=== PATIENT | male | born 1975 | race Caucasian/White ===

== ENCOUNTER 2021-08-09 06:01 | Emergency (ER) | payer SELFPAY ==
[~2021-08-09] VITALS: Ht 180 cm; Wt 105.0 kg
[2021-08-09] MEDS ORDERED: LACTATED RINGERS 1,000 ML IV ONE (06:30)
[2021-08-09] MEDS ORDERED: fentaNYL INJ 100 MCG/2 ML AMP IVP ONE (06:30)
[2021-08-09] MEDS ORDERED: ONDANSETRON 4 MG/2 ML (SDV) Z0FRAN IVP ONE (06:30)
[2021-08-09 06:46] LABS: BASOPHILS # (AUTO) 0.1 10^3/uL (0.0-0.1); BASOPHILS % (AUTO) 1 % (0-10); EOSINOPHILS # (AUTO) 0.3 10^3/uL (0.0-0.3); EOSINOPHILS % (AUTO) 4 % (0-10); HEMATOCRIT 46 % (40-54); HEMOGLOBIN 16.3 g/dL (13.3-17.7); LYMPHOCYTES # (AUTO) 2.3 10^3/uL (1.0-4.0); LYMPHOCYTES % (AUTO) 28 % (12-44); MEAN CORPUSCULAR HEMOGLOBIN 30 pg (25-34); MEAN CORPUSCULAR HGB CONC 35 g/dL (32-36); MEAN CORPUSCULAR VOLUME 86 fL (80-99); MEAN PLATELET VOLUME 9.8 fL (9.0-12.2); MONOCYTES # (AUTO) 0.4 10^3/uL (0.0-1.0); MONOCYTES % (AUTO) 5 % (0-12); NEUTROPHILS # (AUTO) 5.3 10^3/uL (1.8-7.8); NEUTROPHILS % (AUTO) 63 % (42-75); PLATELET COUNT 286 10^3/uL (130-400); WHITE BLOOD COUNT 8.4 10^3/uL (4.3-11.0)
[2021-08-09] MEDS ORDERED: CATHETER FLUSH 10 ML SYR IV PRN (07:00)
[2021-08-09] MEDS ORDERED: HOLD METFORMIN - RECEIVED CONTRAST 20 ML VIAL IV SCH (07:00)
[2021-08-09] MEDS ORDERED: IOHEXOL 350 MG/ML 100 ML (OMNIPAQUE 350) VIAL IV ONE (07:00)
[2021-08-09] MEDS ORDERED: NS 100 ML (IVPB) BAG IV ONE (07:00)
--- NOTE | 2021-08-09 07:01 | ED Abdominal Pain ---
General Chief Complaint: Abdominal/GI Problems Stated Complaint: ABDOMINAL PAIN Nursing Triage Note: Pt c/o right sided abd pain with nausea that becomes worse after eating since Friday. Pt denies urinary symptoms. Denies n/d, fever, or blood in stool. Source of Information: Patient Exam Limitations: No Limitations (MOOKIE BURCIAGA MD) History of Present Illness Date Seen by Provider: August 09, 2021 Time Seen by Provider: 06:15 Initial Comments This 45-year-old gentleman presents to the emergency room with complaints of right-sided abdominal pain for about 4 days now. He has had some nausea without vomiting. He denies any constipation. His last bowel movement was yesterday morning, about 24 hours ago. He denies fever or chills. He denies any prior history of abdominal surgeries. He has a feeling of constipation but he denies any recent constipation. In fact, he normally has loose stools daily because of metformin use. Pain started in the periumbilical region and then moved to the right side. He does not report any urinary changes. He is visibly in mild distress during initial evaluation. (MOOKIE BURCIAGA MD) Allergies and Home Medications Allergies Coded Allergies: Sulfa (Sulfonamide Antibiotics) (Verified Allergy, Unknown, 08/09/21) Patient Home Medication List Home Medication List Reviewed: Yes (MOOKIE BURCIAGA MD) Review of Systems Review of Systems Constitutional: no symptoms reported EENTM: No Symptoms Reported Respiratory: No Symptoms Reported Cardiovascular: No Symptoms Reported Gastrointestinal: See HPI Genitourinary: No Symptoms Reported Musculoskeletal: no symptoms reported Skin: no symptoms reported Psychiatric/Neurological: No Symptoms Reported Endocrine: No Symptoms Reported Hematologic/Lymphatic: No Symptoms Reported (MOOKIE BURCIAGA MD) Past Qzagorw-Gxiwxz-Upuzma Hx Patient Social History Tobacco Use?: No Use of E-Cig and/or Vaping dev: No Substance use?: No Alcohol Use?: No Pt feels they are or have been: No (MOOKIE BURCIAGA MD) Immunizations Up To Date Influenza Vaccine Up-to-Date: No; Not Current First/Initial COVID19 Vaccinat: denies (MOOKIE BURCIAGA MD) Past Medical History Surgeries: Yes Orthopedic (Right knee, left elbow, lower back) Respiratory: No Cardiac: No Neurological: No Genitourinary: No Gastrointestinal: No Musculoskeletal: No Endocrine: No HEENT: No Cancer: No Psychosocial: No Integumentary: No (MOOKIE BURCIAGA MD) Physical Exam Vital Signs Vital Signs - First Documented 08/09/21 06:10 Temp 36.7 Pulse 89 Resp 18 B/P (MAP) 140/73 (95) O2 Delivery Room Air (BRIANA RIVAS MD) Vital Signs Capillary Refill : Less Than 3 Seconds (MOOKIE BURCIAGA MD) Height/Weight/BMI Height: '" Weight: lbs. oz. 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, no motor/sensory deficits, alert, normal mood/affect, oriented x 3 Skin: normal color, warm/dry (MOOKIE BURCIAGA MD) Progress/Results/Core Measures Results/Orders Lab Results Laboratory Tests Test 08/09/21 06:19 Range/Units White Blood Count 8.4 4.3-11.0 10^3/uL Red Blood Count 5.37 4.30-5.52 10^6/uL Hemoglobin 16.3 13.3-17.7 g/dL Hematocrit 46 40-54 % Mean Corpuscular Volume 86 80-99 fL Mean Corpuscular Hemoglobin 30 25-34 pg Mean Corpuscular Hemoglobin Concent 35 32-36 g/dL Red Cell Distribution Width 11.9 10.0-14.5 % Platelet Count 286 130-400 10^3/uL Mean Platelet Volume 9.8 9.0-12.2 fL Immature Granulocyte % (Auto) 0 % Neutrophils (%) (Auto) 63 42-75 % Lymphocytes (%) (Auto) 28 12-44 % Monocytes (%) (Auto) 5 0-12 % Eosinophils (%) (Auto) 4 0-10 % Basophils (%) (Auto) 1 0-10 % Neutrophils # (Auto) 5.3 1.8-7.8 10^3/uL Lymphocytes # (Auto) 2.3 1.0-4.0 10^3/uL Monocytes # (Auto) 0.4 0.0-1.0 10^3/uL Eosinophils # (Auto) 0.3 0.0-0.3 10^3/uL Basophils # (Auto) 0.1 0.0-0.1 10^3/uL Immature Granulocyte # (Auto) 0.0 0.0-0.1 10^3/uL Sodium Level 134 L 135-145 MMOL/L Potassium Level 4.5 3.6-5.0 MMOL/L Chloride Level 100 98-107 MMOL/L Carbon Dioxide Level 21 21-32 MMOL/L Anion Gap 13 5-14 MMOL/L Blood Urea Nitrogen 18 7-18 MG/DL Creatinine 0.89 0.60-1.30 MG/DL Estimat Glomerular Filtration Rate 108 BUN/Creatinine Ratio 20 Glucose Level 271 H 70-105 MG/DL Calcium Level 9.3 8.5-10.1 MG/DL Corrected Calcium 9.0 8.5-10.1 MG/DL Total Bilirubin 0.5 0.1-1.0 MG/DL Aspartate Amino Transf (AST/SGOT) 16 5-34 U/L Alanine Aminotransferase (ALT/SGPT) 23 0-55 U/L Alkaline Phosphatase 97 40-136 U/L C-Reactive Protein 0.33 <0.50 MG/DL Total Protein 7.3 6.4-8.2 GM/DL Albumin 4.4 3.2-4.5 GM/DL Lipase 19 8-78 U/L (BRIANA RIVAS MD) My Orders Orders - BRIANA RIVAS MD Us Gallbladder [id number] (08/09/21 07:42) Ketorolac Injection (Toradol Injection) (08/09/21 07:45) (BRIANA RIVAS MD) Medications Given in ED Current Medications Medications Dose Ordered Sig/Sia Route Start Time Stop Time Status Last Admin Dose Admin Fentanyl Citrate 50 mcg ONCE ONCE IVP 08/09/21 06:30 5/12/22 06:31 DC 08/09/21 06:33 50 MCG Iohexol 100 ml ONCE ONCE IV 08/09/21 07:00 08/09/21 07:03 DC 08/09/21 07:13 100 ML Ketorolac Tromethamine 15 mg ONCE ONCE IVP 08/09/21 07:45 08/09/21 07:47 DC 08/09/21 07:57 15 MG Lactated Ringer's 1,000 ml @ 0 mls/hr Q0M ONCE IV 08/09/21 06:30 08/09/21 06:31 DC 08/09/21 06:33 999 MLS/HR Ondansetron HCl 8 mg ONCE ONCE IVP 08/09/21 06:30 08/09/21 06:31 DC 08/09/21 06:33 8 MG Sodium Chloride 10 ml NEEDED PRN IV 08/09/21 07:00 08/09/21 07:13 10 ML Sodium Chloride 100 ml ONCE ONCE IV 08/09/21 07:00 08/09/21 07:03 DC 08/09/21 07:13 80 ML (BRIANA RIVAS MD) Vital Signs/I&O 08/09/21 06:10 Temp 36.7 Pulse 89 Resp 18 B/P (MAP) 140/73 (95) O2 Delivery Room Air (BRIANA RIVAS MD) Blood Pressure Mean: 95 Progress Progress Note : Time: 07:00 Progress Note Patient was treated with Zofran and fentanyl. IV fluids are infusing. CT scan is pending. Patient is exhibiting peritoneal signs that should be evaluated with imaging promptly. (MOOKIE BURCIAGA MD) Progress Note : Progress Note Sign out from Dr Burciaga. 1. ABDOMINAL PAIN vs MUSCLE STRAIN - CT ABD: fatty liver and gallstones - U/S RUQ: gallbladder polyp instead of stones, and fatty liver - Labs unremarkable with normal white count - Received fluids, Fentanyl, and Zofran - Continued pain, will give Toradol - Gave pt surgery clinic number to make appointment -The patient was seen in the ED, and treated appropriately to presentation at a specific point in time. Patient is informed that there is a possibility that disease and illness can evolve and change in acuity rapidly or slowly after patient is discharged from the ER. Precautionary advice given to the patient for immediate return to ER if symptoms worsen or do not resolve, and to seek emergency care sooner rather than later. Pt also advised on the importance of PCP follow up and compliance with management and follow up plan with PCP and/or specialist, as this is part of the management plan. Pt verbally expressed understanding. (BRIANA RIVAS MD) Diagnostic Imaging Diagonstic Imaging: CT, Ultrasound Plain Films/CT/US/NM/MRI: abdomen Comments [facility], [place] NAME: OLIVIA GUERRIER [facility] REC#: [id number] PT STATUS: REG ER : 1975 PHYSICIAN: BRIANA RIVAS MD ADMIT DATE: 08/09/21/ER FS Draft Date of Exam:08/09/21 US GALLBLADDER [id number] PROCEDURE: US Gallbladder. TECHNIQUE: Multiple real-time grayscale images were obtained over the right upper quadrant in various projections. INDICATION: Right upper quadrant pain. COMPARISON: CT from same date. FINDINGS: The liver is mildly enlarged measuring 21 cm in length. The liver demonstrates diffusely increased echogenicity with a coarsened echotexture and poor acoustic transmission. No focal hepatic mass. A nonmobile 0.2 cm echogenic focus is seen within the gallbladder without posterior acoustic shadowing. No evidence of thickening or fluid. The common bile duct is within normal limits measuring 0.5 cm. The pancreas is not well seen secondary to overlying bowel gas. The right kidney is unremarkable without evidence of hydronephrosis. No significant free fluid. Visualized portions of the inferior vena cava are unremarkable. The abdominal aorta is not well seen secondary to overlying bowel gas. Normal direction of flow within the main portal vein. IMPRESSION: 0.2 cm gallbladder polyp versus adherent stone without evidence of acute cholecystitis. Hepatomegaly with associated fatty infiltration of the liver. Dictated on workstation # [id number] Dict: 08/09/21817 Trans: 08/09/21822 [facility] [place] [place] NAME: OLIVIA GUERRIER [facility] REC#: [id number] PT STATUS: REG ER : 1975 PHYSICIAN: MOOKIE BURCIAGA MD ADMIT DATE: 08/09/21/ER FS Draft Date of Exam:08/09/21 CT ABDOMEN/PELVIS W INDICATION: Abdominal pain TECHNIQUE: Multiple contiguous axial images were obtained through the abdomen and pelvis after administration of intravenous contrast. Auto Exposure Controls were utilized during the CT exam to meet ALARA standards for radiation dose reduction. All CT scans use one or more of the following dose optimizing techniques: automated exposure control, MA and/or KvP adjustment based on patient size and exam type or iterative reconstruction. There is no prior study for comparison. Visualized portions of the lung bases are clear. There were no pleural fluid collections. There is no free intraperitoneal air. The liver shows mild low-density change compatible with fatty infiltration. There are questionable small gallstones in the gallbladder, gallbladder is not distended. The spleen, adrenals, and pancreas are normal. The kidneys bilaterally appear normal. There is no retroperitoneal mass or adenopathy. There is no ascites or abnormal fluid collection. Visualized bowel loops are unremarkable, including the appendix. There is no pelvic mass or lymphadenopathy. IMPRESSION: Mild fatty infiltration of the liver. Questionable small gallstones in the gallbladder without gallbladder distention. No other significant abnormality. Dictated on workstation # [id number] Dict: 08/09/21 0721 Trans: 08/09/21 0735 [facility] [id number] Interpreted by: THALIA SUÁREZ MD Electronically signed by: (BRIANA RIVAS MD) Departure Impression Primary Impression: Abdominal pain Qualified Codes: R10.11 - Right upper quadrant pain Disposition: 01 HOME, SELF-CARE Condition: Stable Departure-Patient Inst. Referrals: NO,LOCAL PHYSICIAN (PCP) Primary Care Physician Patient Instructions: Abdominal Pain, Adult ED Add. Discharge Instructions: Follow-up with surgery clinic. Clinic number has Adequate hydration advised Prescription for Zofran and 4 tablets of Percocet. The patient was seen in the ED, and treated appropriately to presentation at a specific point in time. Patient is informed that there is a possibility that disease and illness can evolve and change in acuity rapidly or slowly after patient is discharged from the ER. Precautionary advice given to the patient for immediate return to ER if symptoms worsen or do not resolve, and to seek emergency care sooner rather than later. Pt also advised on the importance of PCP follow up and compliance with management and follow up plan with PCP and/or specialist, as this is part of the management plan. Pt verbally expressed understanding. All discharge instructions reviewed with patient and/or family. Voiced understanding. Scripts Oxycodone HCl/Acetaminophen (Percocet 5-325 mg Tablet) 5 Mg-325 Mg Tablet 1 TAB PO Q4H PRN for PAIN-MODERATE MDD 6 for 3 Days, #4 TAB Prov: BRIANA RIVAS MD 08/09/21 Ondansetron (Ondansetron Odt) 4 Mg Tab.rapdis 4 MG PO Q4H for Nausea/Vomiting for 3 Days, #20 TAB Prov: BRIANA RIVAS MD 08/09/21 MOOKIE BURCIAGA MD August 09, 2021 07:01 BRIANA RIVAS MD August 09, 2021 07:54
[2021-08-09 07:03] LABS: CREATININE SERUM 0.89 MG/DL (0.60-1.30); POTASSIUM 4.5 MMOL/L (3.6-5.0)
[2021-08-09 07:04] LABS: ALBUMIN 4.4 GM/DL (3.2-4.5); BILIRUBIN,TOTAL 0.5 MG/DL (0.1-1.0); CALCIUM 9.3 MG/DL (8.5-10.1); TOTAL PROTEIN 7.3 GM/DL (6.4-8.2)
--- NOTE | 2021-08-09 07:35 | Diagnostic Imaging Report ---
INDICATION: Abdominal pain TECHNIQUE: Multiple contiguous axial images were obtained through the abdomen and pelvis after administration of intravenous contrast. Auto Exposure Controls were utilized during the CT exam to meet ALARA standards for radiation dose reduction. All CT scans use one or more of the following dose optimizing techniques: automated exposure control, MA and/or KvP adjustment based on patient size and exam type or iterative reconstruction. There is no prior study for comparison. Visualized portions of the lung bases are clear. There were no pleural fluid collections. There is no free intraperitoneal air. The liver shows mild low-density change compatible with fatty infiltration. There are questionable small gallstones in the gallbladder, gallbladder is not distended. The spleen, adrenals, and pancreas are normal. The kidneys bilaterally appear normal. There is no retroperitoneal mass or adenopathy. There is no ascites or abnormal fluid collection. Visualized bowel loops are unremarkable, including the appendix. There is no pelvic mass or lymphadenopathy. IMPRESSION: Mild fatty infiltration of the liver. Questionable small gallstones in the gallbladder without gallbladder distention. No other significant abnormality. Dictated by: Dictated on workstation # [id number]
[2021-08-09] MEDS ORDERED: KETOROLAC 30 MG/ML VIAL IVP ONE (07:45)
--- NOTE | 2021-08-09 08:24 | Diagnostic Imaging Report ---
PROCEDURE: US Gallbladder. TECHNIQUE: Multiple real-time grayscale images were obtained over the right upper quadrant in various projections. INDICATION: Right upper quadrant pain. COMPARISON: CT from same date. FINDINGS: The liver is mildly enlarged measuring 21 cm in length. The liver demonstrates diffusely increased echogenicity with a coarsened echotexture and poor acoustic transmission. No focal hepatic mass. A nonmobile 0.2 cm echogenic focus is seen within the gallbladder without posterior acoustic shadowing. No evidence of thickening or fluid. The common bile duct is within normal limits measuring 0.5 cm. The pancreas is not well seen secondary to overlying bowel gas. The right kidney is unremarkable without evidence of hydronephrosis. No significant free fluid. Visualized portions of the inferior vena cava are unremarkable. The abdominal aorta is not well seen secondary to overlying bowel gas. Normal direction of flow within the main portal vein. IMPRESSION: 0.2 cm gallbladder polyp versus adherent stone without evidence of acute cholecystitis. Hepatomegaly with associated fatty infiltration of the liver. Dictated by: Dictated on workstation # [id number]
[2021-08-09] MEDS ORDERED: ONDA4TAB11 PO (08:39)
[2021-08-09] MEDS ORDERED: OXYC-199 PO (08:39)
[2021-08-09] MEDS ORDERED: oxyCODONE/APAP 5/325MG (PERCOCET 5) TABLET PO ONE (08:45)
[2021-08-09 08:58] VITALS: BP 127/76
== END 2021-08-09 08:45 | disposition home or self-care (01) ==
LOC: ER FS 06:07
DX: R10.11 Right upper quadrant pain (principal); R10.31 Right lower quadrant pain; R11.2 Nausea with vomiting, unspecified; Z28.310 Unvaccinated for COVID-19; Z79.84 Long term (current) use of oral hypoglycemic drugs
CPT/HCPCS: 36415; 74177; 76705; 80053; 83690; 85025; 86141; Q9967

== ENCOUNTER 2021-08-15 15:33 | Emergency (ER) | payer SELFPAY ==
[~2021-08-15] VITALS: Ht 180 cm; Wt 105.0 kg
[~2021-08-15 15:33] MED LIST: ONDA4TAB11 PO; OXYC-199 PO
[2021-08-15] MEDS ORDERED: morphine INJ 10 MG/ML 1ML (SYR OR VIAL) IM STA (15:50)
--- NOTE | 2021-08-15 16:18 | ED General ---
General Chief Complaint: - Reproductive Stated Complaint: TESTICULAR PROBLEMS Nursing Triage Note: Patient has presented to ER with cc of right testicle pain. Source of Information: Patient Exam Limitations: No Limitations (MOOKIE ROME MD) History of Present Illness Date Seen by Provider: August 15, 2021 Time Seen by Provider: 15:34 Initial Comments This 45-year-old gentleman presents to the emergency room via private vehicle as directed by the walk-in clinic at [facility] in [place] for concern about possible right testicular torsion. Patient states he was lifting a heavy item at work yesterday when he first noticed the pain in the right inguinal region. Then today the pain became progressively worse and involved the testicle. There is no obvious hernia involving the inguinal canal. He reports his right testicle normally hangs lower than the left but today is drawn up above the left. He has not noted any urinary changes. He had a work-up on August 09 in the ER for right- sided abdominal pain that included gallbladder ultrasound and CT scan. No major pathology was identified. He is in distress on arrival. He rates his pain as 8/10. At the clinic he was diaphoretic secondary to the pain. (MOOKIE ROME MD) Time Seen by Provider: 17:33 Initial Comments PT ARRIVES VIA POV IN TRANSFER FROM [facility], FOR SCROTAL ULTRASOUND C/O PAIN TO RIGHT INGUINAL AREA SINCE YESTERDAY STATES IF HE IS LAYING DOWN AND HANGS RIGHT LEG OFF THE BED, PAIN RADIATES FROM RIGHT MEDIAL INGUINAL AREA OUT TO RIGHT LATERAL HIP AREA. DENIES ANY ACTUAL PAIN IN ABDOMEN NO NAUSEA/VOMITING NO URINARY SYMPTOMS STATES PAIN IS NOT ANY WORSE TODAY, JUST NOT BETTER PT RECEIVED MORPHINE AT [facility] PRIOR TO TRANSFER. PT WALKS INTO ER WITHOUT DIFFICULTY. PT IS TEXTING/PLAYING ON PHONE THROUGHOUT HISTORY AND EXAM DOES NOT APPEAR TO BE IN ANY DISCOMFORT OR DISTRESS AT THIS TIME. PCP: IN [place], [place] (NICK SALAZAR DO) Allergies and Home Medications Allergies Coded Allergies: Sulfa (Sulfonamide Antibiotics) (Verified Allergy, Unknown, 08/09/21) Patient Home Medication List Home Medication List Reviewed: Yes (MOOKIE ROME MD) Home Medication List Reviewed: Yes (NICK SALAZAR DO) Ketorolac Tromethamine (Ketorolac Tromethamine) 10 Mg Tablet, 10 MG PO Q6H Prescribed by: NICK SALAZAR on 08/15/21 193 Ondansetron (Ondansetron Odt) 4 Mg Tab.rapdis, 4 MG PO Q4H Prescribed by: BRIANA RIVAS MD on 08/09/21 0839 Oxycodone HCl/Acetaminophen (Percocet 5-325 mg Tablet) 5 Mg-325 Mg Tablet, 1 TAB PO Q4H PRN for PAIN-MODERATE Prescribed by: BRIANA RIVAS MD on 08/09/21 0840 Review of Systems Review of Systems Constitutional: no symptoms reported EENTM: no symptoms reported Respiratory: no symptoms reported Cardiovascular: no symptoms reported Gastrointestinal: see HPI Genitourinary: see HPI Musculoskeletal: no symptoms reported Skin: no symptoms reported Psychiatric/Neurological: No Symptoms Reported Hematologic/Lymphatic: No Symptoms Reported (MOOKIE ROME MD) Past Ytlmmbi-Pzahra-Ylbaxx Hx Patient Social History Tobacco Use?: No Use of E-Cig and/or Vaping dev: No Substance use?: No Alcohol Use?: Yes Alcohol Frequency: Rarely (MOOKIE ROME MD) Immunizations Up To Date First/Initial COVID19 Vaccinat: denies (MOOKIE ROME MD) Past Medical History Surgeries: Yes Orthopedic Respiratory: No Cardiac: No Neurological: No Genitourinary: No Gastrointestinal: No Musculoskeletal: No Endocrine: No HEENT: No Cancer: No Psychosocial: No Integumentary: No (MOOKIE ROME MD) Physical Exam Vital Signs Vital Signs - First Documented 08/15/21 15:55 Temp 35.9 Pulse 74 Resp 20 B/P (MAP) 118/85 Pulse Ox 99 O2 Delivery Room Air (NICK SALAZAR DO) Vital Signs Capillary Refill : (MOOKIE ROME MD) Height, Weight, BMI Height: '" Weight: lbs. oz. kg; 32.00 BMI Method: General Appearance: WD/WN, Moderate Distress HEENT: PERRL/EOMI, Normal ENT Inspection Respiratory: Lungs Clear, Normal Breath Sounds, No Accessory Muscle Use Cardiovascular: Regular Rate, Rhythm, No Murmur Gastrointestinal: Normal Bowel Sounds, Soft; No Hernia, No Mass; Tenderness (Right inguinal region) Genital/Rectal: Other (Minimal tenderness in the right scrotum and testicle. No significant erythema or swelling. No hernia noted within the inguinal canal with digital insertion. Tenderness over the inguinal canal with palpation.) Back: No CVA Tenderness Extremity: Normal Inspection Neurologic/Psychiatric: Alert, Oriented x3, No Motor/Sensory Deficits, Normal Mood/Affect Skin: Normal Color, Warm/Dry (MOOKIE ROME MD) General Appearance: Other (PT DOES NOT APPEAR TO BE IN ANY DISCOMFORT OR DISTRESS AT THIS TIME. WALKS UPRIGHT AND MOVES WITHOUT DIFFICULTY. ) (NICK SALAZAR DO) Progress/Results/Core Measures Suspected Sepsis SIRS Temperature: Pulse: 74 Respiratory Rate: 20 Blood Pressure 118 /85 Mean: 96 (MOOKIE ROME MD) Results/Orders Lab Results Laboratory Tests Test 08/15/21 19:03 08/15/21 19:09 Range/Units Urine Opiates Screen POSITIVE H NEGATIVE Urine Oxycodone Screen NEGATIVE NEGATIVE Urine Methadone Screen NEGATIVE NEGATIVE Urine Propoxyphene Screen NEGATIVE NEGATIVE Urine Barbiturates Screen NEGATIVE NEGATIVE Ur Tricyclic Antidepressants Screen NEGATIVE NEGATIVE Urine Phencyclidine Screen NEGATIVE NEGATIVE Urine Amphetamines Screen POSITIVE H NEGATIVE Urine Methamphetamines Screen POSITIVE H NEGATIVE Urine Benzodiazepines Screen NEGATIVE NEGATIVE Urine Cocaine Screen NEGATIVE NEGATIVE Urine Cannabinoids Screen NEGATIVE NEGATIVE Urine Color YELLOW Urine Clarity SL CLOUDY Urine pH 5.5 5-9 Urine Specific [place] >=1.030 1.016-1.022 Urine Protein NEGATIVE NEGATIVE Urine Glucose (UA) 3+ H NEGATIVE Urine Ketones NEGATIVE NEGATIVE Urine Nitrite NEGATIVE NEGATIVE Urine Bilirubin NEGATIVE NEGATIVE Urine Urobilinogen 0.2 < = 1.0 MG/DL Urine Leukocyte Esterase NEGATIVE NEGATIVE Urine RBC (Auto) NEGATIVE NEGATIVE Urine RBC NONE /HPF Urine WBC 0-2 /HPF Urine Squamous Epithelial Cells NONE /HPF Urine Renal Epithelial Cells NONE /HPF Urine Crystals NONE /LPF Urine Bacteria NEGATIVE /HPF Urine Casts NONE /LPF Urine Mucus LARGE H /LPF Urine Culture Indicated NO (NICK SALAZAR DO) My Orders Orders - NICK SALAZAR DO Drug Screen Stat (Urine) (08/15/21 18:30) (NICK SALAZAR DO) Vital Signs/I&O 08/15/21 08/15/21 08/15/21 15:55 16:09 17:35 Temp 35.9 35.9 36.3 Pulse 74 84 82 Resp 20 20 16 B/P (MAP) 118/85 118/82 (94) 132/97 (109) Pulse Ox 99 96 100 O2 Delivery Room Air Room Air Room Air (NICK SALAZAR DO) Vital Signs/I&O Capillary Refill : (MOOKIE ROME MD) Blood Pressure Mean: 96 Progress Note : Time: 16:18 Progress Note Due to pain in the inguinal canal and testicle with elevation of the right testicle from its usual position, there was concern for testicular torsion by the clinic staff. A very gentle open book maneuver was attempted in the ER. Patient stated this did relieve pain within the testicle but not within the inguinal canal. There is no obvious pathology on exam. Therefore, further evaluation with ultrasound was felt paramount. Patient was offered pain control with IV or IM medication. Morphine 5 mg IM was administered. He was offered transport to [place] for ultrasound via ambulance but prefers to go by private vehicle. Report was given to Dr. Morataya and orders placed. I did notify the radiology department that there was a necessary ultrasound exam needed in [place]. Care of this patient will be transitioned to Dr. Morataya upon his arrival. (MOOKIE ROME MD) Progress Note : Progress Note ULTRASOUND NOTIFIED OF PT'S ARRIVAL PT HAD NO COMPLAINTS DURING ER STAY OFFERED TO DO ADDITIONAL TESTING SUCH LAB AND REPEAT CT SCAN, AND PT DECLINES STATES HE JUST WANTS PAIN MEDICATIONS FOR HOME AND A WORK NOTE DISCUSSED GLUCOSE IN URINE, PT STATES HE KNOWS HIS DIABETES IS OUT OF CONTROL AND HAS BEEN STARTED ON A NEW MEDICATION, AND IS NOT INTERESTED IN ANY FURTHER EVALUATION FOR THAT AT THIS TIME. (NICK SALAZAR DO) Diagnostic Imaging Comments SCROTAL ULTRASOUND--PER RADIOLOGIST REPORT AT 1910 FINDINGS: The right testis has a homogeneous echogenic appearance without intratesticular mass or hyperemia, and measures 4.2 x 1.8 x 2.5 cm. The right epididymis is normal. No extratesticular mass. No hydrocele or varicocele. The left testis has a homogeneous echogenic appearance without intratesticular mass or hyperemia, and measures 4.2 x 1.8 x 2.9 cm. The left epididymis contains a 0.8 cm cyst. No extratesticular mass. There is a small hydrocele. No varicocele. Color and pulsed Doppler imaging demonstrates symmetric, flow with normal arterial waveforms obtained from each testis. No focal abnormality seen within the visualized right inguinal canal. IMPRESSION: Small left hydrocele. Otherwise unremarkable scrotal ultrasound. Reviewed: Reviewed by Me (NICK SALAZAR DO) Departure Impression Primary Impression: Right testicular pain Additional Impressions: Right inguinal pain POSSIBLE RIGHT GROIN STRAIN Illicit drug use Disposition: HOME, SELF-CARE Condition: Stable Departure-Patient Inst. Decision time for Depature: 19:31 (NICK SALAZAR DO) Referrals: NO,LOCAL PHYSICIAN (PCP/Family) Primary Care Physician Patient Instructions: Groin Strain ED Add. Discharge Instructions: FOLLOW UP WITH YOUR DR THIS WEEK FOR FURTHER CARE--CALL IN THE MORNING TO SCHEDULE APPOINTMENT All discharge instructions reviewed with patient and/or family. Voiced understanding. Scripts Ketorolac Tromethamine (Ketorolac Tromethamine) 10 Mg Tablet 10 MG PO Q6H for Pain, #15 TAB Prov: NICK SALAZAR DO 08/15/21 Work/School Note: Work Release Form Date Seen in the Emergency Department: August 15, 2021 Return to Work: August 17, 2021 MOOKIE ROME MD August 15, 2021 16:18 NICK SALAZAR DO August 15, 2021 17:40
--- NOTE | 2021-08-15 18:59 | Diagnostic Imaging Report ---
EXAMINATION: US scrotum w/duplex. TECHNIQUE: Multiple realtime campos images were obtained of the scrotum in various projections, bilaterally. Color Doppler images were also obtained. HISTORY: Pain. COMPARISON: None available. FINDINGS: The right testis has a homogeneous echogenic appearance without intratesticular mass or hyperemia, and measures 4.2 x 1.8 x 2.5 cm. The right epididymis is normal. No extratesticular mass. No hydrocele or varicocele. The left testis has a homogeneous echogenic appearance without intratesticular mass or hyperemia, and measures 4.2 x 1.8 x 2.9 cm. The left epididymis contains a 0.8 cm cyst. No extratesticular mass. There is a small hydrocele. No varicocele. Color and pulsed Doppler imaging demonstrates symmetric, flow with normal arterial waveforms obtained from each testis. No focal abnormality seen within the visualized right inguinal canal. IMPRESSION: Small left hydrocele. Otherwise unremarkable scrotal ultrasound. Dictated by: Dictated on workstation # [id number]
[2021-08-15 19:26] LABS: AMPHETAMINE SCREEN, URINE POSITIVE (NEGATIVE); BARBITURATE SCREEN URINE NEGATIVE (NEGATIVE); BENZODIAZEPINES SCREEN URINE NEGATIVE (NEGATIVE); CANNABINOID SCREEN, URINE NEGATIVE (NEGATIVE); COCAINE SCREEN URINE NEGATIVE (NEGATIVE); METHADONE STAT NEGATIVE (NEGATIVE); OPIATE SCREEN URINE POSITIVE (NEGATIVE); OXYCODONE STAT NEGATIVE (NEGATIVE); PROPOXYPHENE STAT NEGATIVE (NEGATIVE); TRICYCLIC ANTIDEPRESSANTS SCRE NEGATIVE (NEGATIVE)
[2021-08-15 19:31] LABS: BACTERIA,URINE NEGATIVE /HPF; BILIRUBIN,URINE NEGATIVE (NEGATIVE); CLARITY,URINE SL CLOUDY; COLOR,URINE YELLOW; GLUCOSE, URINE (UA) 3+ (NEGATIVE); KETONES,URINE NEGATIVE (NEGATIVE); LEUKOCYTE ESTERASE ,URINE NEGATIVE (NEGATIVE); NITRITE,URINE NEGATIVE (NEGATIVE); PH,URINE 5.5 (5-9); PROTEIN,URINE NEGATIVE (NEGATIVE); WBC,URINE 0-2 /HPF
[2021-08-15] MEDS ORDERED: KETO10TA PO (19:32)
[2021-08-15 19:39] VITALS: BP 140/90
== END 2021-08-15 19:40 | disposition home or self-care (01) ==
LOC: EDUNIT# 15:33 → ER FS 15:34 → ER 19:40
DX: N43.3 Hydrocele, unspecified (principal); F15.10 Other stimulant abuse, uncomplicated; F11.10 Opioid abuse, uncomplicated
CPT/HCPCS: 76870; 80306; 81000; 99282

== ENCOUNTER 2021-10-03 17:12 | Emergency (ER) | payer SELFPAY ==
[~2021-10-03] VITALS: Ht 180.3 cm; Wt 111.0 kg
[~2021-10-03 17:12] MED LIST changes: +KETO10TA PO
[2021-10-03 17:16] VITALS: BP 147/94
--- NOTE | 2021-10-03 17:28 | ED Cardiac General ---
History of Present Illness General Chief Complaint: Cardiac/General Problems Stated Complaint: BLOOD SUGAR/PRESSURE ISSUES Source: patient, other (walk in clinic [facility] called report) Exam Limitations: no limitations History of Present Illness Date Seen by Provider: Oct 03, 2021 Time Seen by Provider: 17:14 Initial Comments 46-year-old male with past medical history of diabetes coming in as a referral from walk-in clinic due to low blood sugar earlier today that is now high and elevated blood pressure in the setting of 1 minute of chest discomfort around 8 hours ago not having any chest pain right now. He woke up and his glucose was around 46 and he was feeling lightheaded and funny. He ate and the glucose went up to around 300. Its been around 200s since then. He typically wakes up with a glucose around 130s. He is on once weekly Trulicity and also takes a pill daily which she is unsure what it is. He says its not metformin. Denies any current chest pain, shortness of breath, abdominal pain, nausea, vomiting, weakness, numbness, headache, vision changes, fever, chills, rash, or any other concerns Denies any cardiac history, no prior DVT or PE, no leg swelling or pain, no recent surgery, no recent long travel, does not take any hormones Allergies and Home Medications Allergies Coded Allergies: Sulfa (Sulfonamide Antibiotics) (Verified Allergy, Unknown, 08/09/21) Patient Home Medication List Home Medication List Reviewed: Yes Ketorolac Tromethamine (Ketorolac Tromethamine) 10 Mg Tablet, 10 MG PO Q6H Prescribed by: NICK SALAZAR on 08/15/211931 Ondansetron (Ondansetron Odt) 4 Mg Tab.rapdis, 4 MG PO Q4H Prescribed by: BRIANA RIVAS MD on 08/09/21 0839 Oxycodone HCl/Acetaminophen (Percocet 5-325 mg Tablet) 5 Mg-325 Mg Tablet, 1 TAB PO Q4H PRN for PAIN-MODERATE Prescribed by: BRIANA RIVAS MD on 08/09/21 0840 Review of Systems Review of Systems Constitutional: No fever EENTM: No Blurred Vision Respiratory: Denies Cough Cardiovascular: Chest Pain Gastrointestinal: Denies Abdominal Pain Genitourinary: Denies Burning Musculoskeletal: no symptoms reported Skin: no symptoms reported Psychiatric/Neurological: No Symptoms Reported Endocrine: Other (Low blood sugar) Hematologic/Lymphatic: No Symptoms Reported All Other Systems Reviewed Negative Unless Noted: Yes Past Rzffazc-Xplhed-Ueucpn Hx Patient Social History Smokeless Tobacco Frequency: Current Everyday User Immunizations Up To Date First/Initial COVID19 Vaccinat: denies Past Medical History Surgeries: Yes Orthopedic Respiratory: No Cardiac: No Neurological: No Genitourinary: No Gastrointestinal: No Musculoskeletal: No Endocrine: No HEENT: No Cancer: No Psychosocial: No Integumentary: No Physical Exam Vital Signs Vital Signs - First Documented 10/03/21 17:16 Temp 36.5 Pulse 79 Resp 18 B/P (MAP) 147/94 (111) Pulse Ox 97 O2 Delivery Room Air Capillary Refill : Height, Weight, BMI Height: '" Weight: lbs. oz. kg; 32.00 BMI Method: General Appearance: No Apparent Distress, WD/WN HEENT: PERRL/EOMI, Normal ENT Inspection, Pharynx Normal Neck: Full Range of Motion, Normal Inspection, Non Tender, Supple Respiratory: Chest Non Tender, Lungs Clear, Normal Breath Sounds, No Accessory Muscle Use, No Respiratory Distress Cardiovascular: Regular Rate, Rhythm, No Edema, Normal Peripheral Pulses Gastrointestinal: Normal Bowel Sounds, Non Tender, Soft; No Distended, No Guarding Extremity: Normal Capillary Refill, Normal Inspection, Normal Range of Motion, Non Tender, No Calf Tenderness, No Pedal Edema Neurologic/Psychiatric: Alert, No Motor/Sensory Deficits, Normal Mood/Affect Skin: Normal Color, Warm/Dry Lymphatic: No Adenopathy Progress/Results/Core Measures Results/Orders Lab Results Laboratory Tests Test 10/03/21 17:22 Range/Units White Blood Count 8.9 4.3-11.0 10^3/uL Red Blood Count 5.17 4.30-5.52 10^6/uL Hemoglobin 15.8 13.3-17.7 g/dL Hematocrit 44 40-54 % Mean Corpuscular Volume 84 80-99 fL Mean Corpuscular Hemoglobin 31 25-34 pg Mean Corpuscular Hemoglobin Concent 36 32-36 g/dL Red Cell Distribution Width 11.8 10.0-14.5 % Platelet Count 234 130-400 10^3/uL Mean Platelet Volume 9.1 9.0-12.2 fL Immature Granulocyte % (Auto) 1 % Neutrophils (%) (Auto) 60 42-75 % Lymphocytes (%) (Auto) 30 12-44 % Monocytes (%) (Auto) 5 0-12 % Eosinophils (%) (Auto) 3 0-10 % Basophils (%) (Auto) 1 0-10 % Neutrophils # (Auto) 5.4 1.8-7.8 10^3/uL Lymphocytes # (Auto) 2.7 1.0-4.0 10^3/uL Monocytes # (Auto) 0.5 0.0-1.0 10^3/uL Eosinophils # (Auto) 0.3 0.0-0.3 10^3/uL Basophils # (Auto) 0.1 0.0-0.1 10^3/uL Immature Granulocyte # (Auto) 0.1 0.0-0.1 10^3/uL Prothrombin Time 12.5 12.2-14.7 SEC INR Comment 0.9 0.8-1.4 Activated Partial Thromboplast Time 27 24-35 SEC Sodium Level 140 135-145 MMOL/L Potassium Level 4.0 3.6-5.0 MMOL/L Chloride Level 105 98-107 MMOL/L Carbon Dioxide Level 25 21-32 MMOL/L Anion Gap 10 5-14 MMOL/L Blood Urea Nitrogen 13 7-18 MG/DL Creatinine 0.87 0.60-1.30 MG/DL Estimat Glomerular Filtration Rate 108 BUN/Creatinine Ratio 15 Glucose Level 145 H 70-105 MG/DL Calcium Level 9.3 8.5-10.1 MG/DL Corrected Calcium 8.9 8.5-10.1 MG/DL Magnesium Level 2.0 1.6-2.4 MG/DL Total Bilirubin 0.4 0.1-1.0 MG/DL Aspartate Amino Transf (AST/SGOT) 17 5-34 U/L Alanine Aminotransferase (ALT/SGPT) 29 0-55 U/L Alkaline Phosphatase 92 40-136 U/L Troponin I < 0.30 <0.30 NG/ML Total Protein 7.5 6.4-8.2 GM/DL Albumin 4.5 3.2-4.5 GM/DL My Orders Orders - SHERRIE PENNINGTON MD Cbc With Automated Diff (10/03/21 17:28) Magnesium (10/03/21 17:28) Chest 1 View Ap/Pa Only (10/03/21 17:28) Ekg Tracing (10/03/21 17:28) Comprehensive Metabolic Panel (10/03/21 17:28) Protime With Inr (10/03/21 17:28) Partial Thromboplastin Time (10/03/21 17:28) Monitor-Rhythm Ecg Trace Only (10/03/21 17:28) Ed Iv/Invasive Line Start (10/03/21 17:28) Troponin I Fs (10/03/21 17:28) Vital Signs/I&O 10/03/21 17:16 Temp 36.5 Pulse 79 Resp 18 B/P (MAP) 147/94 (111) Pulse Ox 97 O2 Delivery Room Air Progress Progress Note : Progress Note 46-year-old male with above history coming in due to low blood sugar around 8 hours ago with 1 minute of chest pain at that time. ABCs were intact and vitals are stable on presentation. Physical exam reassuring with no focal abnormalities. EKG with no acute ischemic changes. An IV was placed and basic labs were obtained including a negative troponin. Chest x-ray without acute abnormalities. Glucose now is in the 140s. I am unclear of the other medicine is on, but it is possible it is a secretagogue causing low blood sugars. I told him to follow-up with his regular doctor to discuss if this needs to be changed. Told him to also take his blood sugar multiple times when he gets home and at least once overnight with setting an alarm until it normalizes. He was then discharged home in stable condition with strict return precautions Initial ECG Impression Date: Oct 03, 2021 Initial ECG Impression Time: 17:20 Initial ECG Rate: 76 Initial ECG Rhythm: Normal Sinus Comment Narrow QRS, normal axis, no significant ST changes or T wave abnormalities, appears similar to prior EKG performed at the walk-in clinic earlier today which I have reviewed Departure Impression Primary Impression: Hypoglycemia Additional Impressions: Chest pain Qualified Codes: R07.82 - Intercostal pain Elevated blood pressure reading Disposition: HOME, SELF-CARE Condition: Stable Departure-Patient Inst. Decision time for Depature: 18:06 Referrals: NO,LOCAL PHYSICIAN (PCP/Family) Primary Care Physician Patient Instructions: Low Blood Sugar, Adult ED, High Blood Pressure ED Add. Discharge Instructions: Your labs look reassuring here. It does not look like you have had any type of heart attack. Your blood sugar is 145 now. I recommend taking your blood sugar at least once tonight, and then set an alarm to take it once in the middle the night as well as in the morning. I would do this for the next couple of nights to be sure that you are not continuing to have lows. If you continue to have low blood sugars, immediately drink orange juice or some type of sugary drink to get it to go up, and then eat something with protein in it. Sugars continue to be low multiple times then call your regular doctor to see if they can change the medications you are on. Regards to your blood pressure, I want you to buy blood pressure cuff, and take it in the morning and nighttime. Write these numbers down in a diary of some kind. If the numbers continue to be elevated greater than 130s over 90s then I want you to alert your doctor because you may need to be on a blood pressure medicine. If you are having extremely high blood pressure (greater than 200/100) with extreme chest pain, extreme shortness of breath, weakness we cannot move 1 side of your body, numbness or you cannot feel 1 side of your body, or the worst headache of her life then I would want you to come to the ER. If you are just having mild symptoms otherwise you can follow-up with your regular doctor Work/School Note: Work Release Form Date Seen in the Emergency Department: Oct 03, 2021 Return to Work: Oct 04, 2021 Restrictions: No Restrictions SHERRIE PENNINGTON MD Oct 03, 2021 17:28
[2021-10-03 17:44] LABS: BASOPHILS # (AUTO) 0.1 10^3/uL (0.0-0.1); BASOPHILS % (AUTO) 1 % (0-10); EOSINOPHILS # (AUTO) 0.3 10^3/uL (0.0-0.3); EOSINOPHILS % (AUTO) 3 % (0-10); HEMATOCRIT 44 % (40-54); HEMOGLOBIN 15.8 g/dL (13.3-17.7); LYMPHOCYTES # (AUTO) 2.7 10^3/uL (1.0-4.0); LYMPHOCYTES % (AUTO) 30 % (12-44); MEAN CORPUSCULAR HEMOGLOBIN 31 pg (25-34); MEAN CORPUSCULAR HGB CONC 36 g/dL (32-36); MEAN CORPUSCULAR VOLUME 84 fL (80-99); MEAN PLATELET VOLUME 9.1 fL (9.0-12.2); MONOCYTES # (AUTO) 0.5 10^3/uL (0.0-1.0); MONOCYTES % (AUTO) 5 % (0-12); NEUTROPHILS # (AUTO) 5.4 10^3/uL (1.8-7.8); NEUTROPHILS % (AUTO) 60 % (42-75); PLATELET COUNT 234 10^3/uL (130-400); WHITE BLOOD COUNT 8.9 10^3/uL (4.3-11.0)
--- NOTE | 2021-10-03 17:45 | Diagnostic Imaging Report ---
INDICATION: 46-year-old male with chest pain. COMPARISON: None. FINDINGS: Single view chest shows the cardiac contour to be normal. Some background chronic parenchymal changes are present. Questionable mild central venous prominence. No focal consolidation is seen. There is no effusion or pneumothorax. Soft tissues and bony thorax are grossly unremarkable. IMPRESSION: Chronic parenchymal changes. There is questionable mild central venous prominence which may be accentuated by the portable technique and low lung volumes. No acute consolidation is seen. Dictated by: Dictated on workstation # [id number]
[2021-10-03 17:56] LABS: INR 0.9 (0.8-1.4); PROTHROMBIN TIME PATIENT 12.5 SEC (12.2-14.7)
[2021-10-03 17:59] LABS: CREATININE SERUM 0.87 MG/DL (0.60-1.30)
[2021-10-03 18:00] LABS: ALBUMIN 4.5 GM/DL (3.2-4.5); BILIRUBIN,TOTAL 0.4 MG/DL (0.1-1.0); CALCIUM 9.3 MG/DL (8.5-10.1); TOTAL PROTEIN 7.5 GM/DL (6.4-8.2)
== END 2021-10-03 18:10 | disposition home or self-care (01) ==
LOC: EDUNIT# 17:12 → ER FS 17:13
DX: E11.649 Type 2 diabetes mellitus with hypoglycemia without coma (principal); I10 Essential (primary) hypertension; F17.220 Nicotine dependence, chewing tobacco, uncomplicated; Z28.310 Unvaccinated for COVID-19; Z79.899 Other long term (current) drug therapy
CPT/HCPCS: 36415; 71045; 80053; 83735; 84484; 85025; 85610; 85730; 93005; 93041